=== PATIENT | male | born 1985 ===

== ENCOUNTER 2024-04-15 01:00 | Emergency (ER) | payer OTHER ==
[2024-04-15] MEDS ORDERED: SODIUM CHLORIDE 0.9% 1,000 ML BAG ONE (01:20)
[2024-04-15] MEDS ORDERED: LIDOCAINE 1% INJ 10MG/ML (20 ML MDV) ONE (02:42)
[2024-04-15] MEDS ORDERED: BACITRACIN OINT 1 EACH PACKET TOPICAL ONE (03:33)
[2024-04-15] MEDS ORDERED: DIPH,PERTUS(ACELL)TETVAC-LF 0.5 ML VIAL IM ONE (03:41)
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
== END 2024-04-15 04:20 | disposition home or self-care (01) ==
LOC: EC 01:00
CPT/HCPCS: 70450; 71045; 72125; 74177; 86850; 86900; 86901; 90471; 90715; 93005; 99285